=== PATIENT | male | born 1950 | race Asian ===

== ENCOUNTER 2019-05-02 10:52 | Emergency (ER) | payer OTHER ==
[~2019-05-02] VITALS: Ht 165.1 cm; Wt 80.3 kg
[2019-05-02 10:56] VITALS: Ht 165.1 cm; Wt 80.3 kg
[2019-05-02 11:41] LABS: BASOPHIL % 0.3 % (0-2); CARBON DIOXIDE 26.7 mmol/L (21-32); CREATININE SERUM 1.3 mg/dL (0.7-1.3); PLATELET COUNT 158 x10^3mcL (130-400); POTASSIUM SERUM 4.4 mmol/L (3.5-5.1)
[2019-05-02 11:49] LABS: ALBUMIN 4.1 g/dL (3.4-5.0); BILIRUBIN TOTAL 0.85 mg/dL (0.20-1.00); TOTAL PROTEIN, SERUM 7.8 g/dL (6.4-8.2)
[2019-05-02 14:11] LABS: UA SPECIFIC GRAVITY 1.015 (1.005-1.035); microscopic required? YES; urine erythrocyte 3+ (NEGATIVE)
[2019-05-02 17:59] VITALS: BP 125/78
== END 2019-05-02 19:30 | disposition short-term general hospital (02) ==
LOC: ED 10:52
PROVIDERS: Emergency Medicine
DX: A41.9 Sepsis, unspecified organism (principal); N13.6 Pyonephrosis; E86.0 Dehydration
CPT/HCPCS: J0696; J1885; J2405; J7030; J7040; J7060; Q0092